=== PATIENT | female | born 1960 | race American Indian/Alaskan Native ===

== ENCOUNTER → 2024-10-23 | Outpatient (CLI) | payer MEDICARE, OTHER, SELFPAY ==
--- NOTE | 2024-10-23 07:30 | XR_ITS ---
Examination: MRI brain without intravenous contrast. Date and time of exam: October 23, 2024 0732 hours INDICATIONS: Numbness neck pain sudden onset sharp head pain behind the right eye Technique: Multiple axial and sagittal images of the brain obtained. Siemens high-resolution 1.5 Giuliana short bore scanners utilized. Sagittal sections, T1-weighted, TR 500, TE 14, are performed. Axial sections proton-density and T2-weighted have been obtained. Inversion recovery axial images, TR 9, 260, TE 111, TI 2500. Diffusion weighted images, axial sections, TR 4800, TE 128, B value 1000 Axial sections, ADC map, TR 4800, TE 128 Findings: Enlargement of the sella turcica is not present. The optic chiasm and infundibular are not remarkable. Prepontine and interpeduncular cisterns are not enlarged. There is no localized enlargement of the medulla or debbie. Fourth ventricle and cerebellar tonsils appear normal in position. No subacute area of hemorrhage density is seen. Mass in the cerebellopontine angle region is not evident. Globes symmetrical. Orbital musculature including medial lateral rectus muscles do not exhibit abnormality. Diffusion-weighted images demonstrate no focus of restricted diffusion. Increased white matter signal evident, punctate foci increased signal left temporal lobe FLAIR image 12 right temporal lobe FLAIR image 13, multiple foci in the parietal lobes Mass effect upon the ventricular system is not identified. Impression: Negative for acute hemorrhage mass effect or midline shift No acute infarct Multiple punctate foci increased signal in the cerebral white matter, consider accelerated chronic microvascular white matter change, demyelinating disease MRA brain without contrast follow-up would best exclude cerebral aneurysm
== END | disposition home or self-care (01) ==
LOC: SMRI 07:24
PROVIDERS: PCP Nurse Practitioner Family; Referring Provider Nurse Practitioner Family; Visit Provider Nurse Practitioner Family
DX: R90.82 White matter disease, unspecified (principal)
CPT/HCPCS: 70551

== ENCOUNTER → 2024-11-29 | Outpatient (CLI) | payer MEDICARE, OTHER, SELFPAY ==
--- NOTE | 2024-11-29 13:40 | XR_ITS ---
Examination: Bone densitometry Date and time of exam:November 29, 2024 1352 hours INDICATIONS: Hysterectomy age 47 calcium and vitamin D 8 years Technique: Lumbar spine and hip total bone mineralization values of an calculated. Peak reference and age match control results have been displayed. Findings: Lumbar spine total bone mineralization is0.878 gm/cm2. This is 1.5 standard deviations below peak reference. This is 0.2 standard deviations above age-matched controls. Hip total bone mineralization is 0.799 gm/cm2 This is 1.2 standard deviations below peak reference. This is point standard deviations below age-matched controls Impression: There is osteopenia based on lumbar spine measurements. There is osteoporosis based on hip measurements Lumbar mineralization is decreased 15.8% compared with May 16, 2013 Hip mineralization is decreased 7.0% compared with May 16, 2013
== END | disposition home or self-care (01) ==
PROVIDERS: PCP Nurse Practitioner Family; Referring Provider Nurse Practitioner Family; Visit Provider Nurse Practitioner Family
DX: M85.88 Other specified disorders of bone density and structure, other site (principal); M81.0 Age-related osteoporosis without current pathological fracture
CPT/HCPCS: 77080

== ENCOUNTER → 2025-06-14 | Outpatient (CLI) | payer MEDICARE, OTHER, SELFPAY ==
--- NOTE | 2025-06-14 13:54 | XR_ITS ---
Examination: Foot, right, 3 views Technique: AP, oblique, lateral views foot, 3 views Date and time of exam: June 14, 2025 1403 hours INDICATIONS: Right foot pain beginning 5 days ago. FINDINGS: Moderate osteopenia. Mild to moderate narrowing first metatarsophalangeal joint No fracture 4 mm plantar bony calcaneal spur IMPRESSION: Mild to moderate narrowing first metatarsophalangeal joint 4 mm plantar bony calcaneal spur
== END | disposition home or self-care (01) ==
PROVIDERS: PCP Nurse Practitioner Family; Referring Provider Nurse Practitioner Family; Visit Provider Nurse Practitioner Family
DX: M25.871 Other specified joint disorders, right ankle and foot (principal); M77.31 Calcaneal spur, right foot
CPT/HCPCS: 73630

== ENCOUNTER → 2025-08-22 | Outpatient (CLI) | payer MEDICARE, OTHER, SELFPAY ==
--- NOTE | 2025-08-22 13:15 | XR_ITS ---
Examination: Bilateral hips, AP pelvis, 5 views Technique: AP, lateral views both hips, AP pelvis, 5 views Exam date and time: August 22, 2025, 1352 hours INDICATIONS: Patient fell last week with injury to both hips, bilateral hip pain FINDINGS: No right or left hip fracture or dislocation Bones of the pelvis intact IMPRESSION: No acute hip or pelvic fracture noted
--- NOTE | 2025-08-22 13:15 | XR_ITS ---
Examination: Lumbar spine, 5 views Technique: Lumbar spine AP, lateral, coned lateral lower lumbar spine, bilateral obliques 5 views Exam date and time: August 22, 2025, 1352 hours INDICATIONS: Patient fell last week with injury to the lower back, lower back pain FINDINGS: Moderate osteopenia. Adequate line and lumbar vertebral bodies on the lateral view. No lumbar fracture. Moderate disc narrowing L4-L5 IMPRESSION: No acute lumbar fracture
== END | disposition home or self-care (01) ==
LOC: CDIM 13:05
PROVIDERS: PCP Nurse Practitioner Family; Referring Provider Physician Assistant; Visit Provider Physician Assistant
DX: S79.912A Unspecified injury of left hip, initial encounter (principal); S79.911A Unspecified injury of right hip, initial encounter; S39.92XA Unspecified injury of lower back, initial encounter; W19.XXXA Unspecified fall, initial encounter
CPT/HCPCS: 72110; 73523

== ENCOUNTER → 2025-10-29 | Outpatient (CLI) | payer MEDICARE, OTHER, SELFPAY ==
--- NOTE | 2025-10-29 10:00 | XR_ITS ---
Examination: Breast ultrasound complete, bilateral Date and time of exam: October 29, 2025, 0956 hours, comparison September 26, 2024 INDICATIONS: History breast cystic disease, right axillary pain 1 year Technique: Real-time grayscale ultrasonographic imaging bilateral breasts, including all 4 quadrants as well as nipple retroareolar and axillary regions. Findings: Sonographic images right breast 10:00 cyst 7 x 7 mm No solid nodules Sonographic images left breast 2:00 cyst 8 x 9 mm No solid nodules Bilateral smaller breast cysts IMPRESSION: BI-RADS Category 2: Benign findings
--- NOTE | 2025-10-29 11:00 | XR_ITS ---
Examination: Diagnostic digital mammography, bilateral Computer aided detection 3-D breast Tomosynthesis, bilateral Date and time of exam: October 29, 2025, 1036 hours, compared to mammograms dating to February 11, 2017 INDICATIONS: Patient states right breast lump noticed beginning 2 months ago Technique: Nonmagnified MLO, CC views of the breasts to been obtained, reconstructed from 3-D Tomosynthesis images. R2 computer aided detection program utilized for evaluation of suspicious masses and/or abnormal calcifications. 3-D Tomosynthesis images obtained. Findings: The breast is heterogeneously dense, which may obscure small masses 17 mm focal asymmetry upper right breast on the spot compression view, likely outer right breast on the spot compression cc view near the palpable marker This does not appear to correspond to the cyst described on the ultrasound examination today No suspicious left breast masses Impression: BI-RADS Category 3: Probably benign findings 3 to 6-month right mammogram follow-up strongly recommended to document stability of 17 mm focal asymmetry upper right breast likely outer right breast on the spot compression views.
== END | disposition home or self-care (01) ==
PROVIDERS: PCP Physician Assistant; Referring Provider Physician Assistant; Visit Provider Physician Assistant
DX: R92.333 Mammographic heterogeneous density, bilateral breasts (principal); N64.89 Other specified disorders of breast
CPT/HCPCS: 76641; 77062; 77066; G0279